=== PATIENT | female | born 1975 | race Caucasian/White ===

== ENCOUNTER → 2021-11-02 | Outpatient (CLI) | payer OTHER ==
[~2021-11-02] MED LIST: HYDROCHLOROTHIA25 MG PO; PROVENTIL HFA6.7 GM INH; SINGULAIR10 MG PO; SYNTHROID137 MCG PO
[2021-11-02 10:20] LABS: RED BLOOD COUNT 5.12 M/UL (4.00-5.10); WHITE BLOOD COUNT 8.3 K/UL (4.5-11.0)
[2021-11-02 10:45] LABS: BUN/CREATININE RATIO 16 (0-10)
== END ==
LOC: OPSV2 09:43
PROVIDERS: Obstetrics & Gynecology
DX: Z01.818 Encounter for other preprocedural examination (principal); N93.9 Abnormal uterine and vaginal bleeding, unspecified
CPT/HCPCS: 36415; 80053; 81001; 85025; 93005

== ENCOUNTER → 2021-11-10 | Day surgery (SDC) | payer OTHER | END | disposition home or self-care (01) | LOC: OR 06:00 | DX: N95.0 Postmenopausal bleeding (principal); I10 Essential (primary) hypertension | CPT/HCPCS: 84703; J1100; J1170; J1885; J2001; J2250; J2405; J2704; J2795; J3010; J7120 ==